=== PATIENT | female | born 1970 | race Two or more races ===

== ENCOUNTER 2021-02-20 20:53 | Emergency (ER) | payer OTHER ==
[~2021-02-20] VITALS: Ht 165.1 cm; Wt 86.2 kg
== END 2021-02-21 00:31 | disposition home or self-care (01) ==
LOC: ER 20:53
DX: S42.321A Displaced transverse fracture of shaft of humerus, right arm, initial encounter for closed fracture (principal); W18.39XA Other fall on same level, initial encounter; Y93.89 Activity, other specified; Y92.098 Other place in other non-institutional residence as the place of occurrence of the external cause; Y99.8 Other external cause status